=== PATIENT | male | born 1945 | race Caucasian/White ===

== ENCOUNTER 2024-03-06 07:50 | Emergency (ER) | payer MEDICARE, OTHER ==
--- NOTE | 2024-03-06 07:53 | ERPHSYRPT ---
- History of Present Illness Time Seen by Provider: 03/06/24 07:53 Historian: patient, family Exam Limitations: no limitations Physician History: This is a 78-year-old white male patient who was brought to the emergency department by his spouse secondary to constipation and urinary retention. Patient had fallen several days ago and was placed on narcotic pain medicine. Approximate 4 to 5 days ago he noticed constipation and difficulty urinating therefore he stopped the narcotics. However, he has not been able to urinate in the last couple of days and also has not been able to have a bowel movement in the last 4 to 5 days. He has had no nausea or vomiting symptoms. However, he does have abdominal distention with discomfort. Patient has had issues in the past with constipation. Recently he tried stool softeners as well as Ex-Lax type of medication. He did attempt to use a fleets enema but was unable to do so. Patient denies shortness of breath. Patient denies chest pain. Patient is a daily smoker of tobacco cigarettes. He has a history of hyperlipidemia, coronary disease, hypertension, hypothyroidism and gout. Timing/Duration: day(s), worse (4 to 5 days) Quality: pressure, tightness Abdominal Pain Onset Location: generalized abdomen Pain Radiation: no radiation Severity of Pain-Max: mild Severity of Pain-Current: mild Modifying Factors: Improves With: nothing Associated Symptoms: other (The patient and urinary retention) Previous symptoms: same symptoms as today (In the distant past), no recent treatment Allergies/Adverse Reactions: No Known Drug Allergies Allergy (Verified 01/04/13 13:26) Home Medications: Allopurinol 300 mg [Zyloprim 300 mg] 300 mg PO DAILY 01/04/13 [History] Aspirin EC 325 mg [Ecotrin 325 MG] 325 mg PO DAILY 01/04/13 [History] Hydrochlorothiazide 25 mg [hydroDIURIL 25 MG] 12.5 mg PO DAILY 01/04/13 [History] Indomethacin 25 mg [Indocin 25 MG] 75 mg PO BID 01/04/13 [History] Levothyroxine Sodium 50 Mcg [Synthroid 50 Mcg] 50 mcg PO DAILY 01/04/13 [History] Lisinopril 5 mg [Zestril 5 MG] 5 mg PO DAILY 01/04/13 [History] Metformin HCl 1000 mg [Glucophage 1000 MG] 1,000 mg PO DAILY 01/04/13 [History] Metoprolol Tartrate 50 mg [Lopressor 50 MG] 50 mg PO DAILY 01/04/13 [History] Nitroglycerin 0.4 mg/Hr [Nitro-Dur 0.4 MG/HR] 0.4 mg TD DAILY 01/04/13 [History] Rosuvastatin Calcium [Crestor] 20 mg PO DAILY 01/04/13 [History] Hx Influenza Vaccination/Date Given: No Hx Pneumococcal Vaccination/Date Given: No Travel Risk - International Travel Have you traveled outside of the country in past 3 weeks: No - Emerging Infectious Disease Are you exhibiting symptoms associated with any current EIDs: No - Review of Systems Constitutional: No Symptoms Eyes: No Symptoms Ears, Nose, & Throat: No Symptoms Respiratory: No Symptoms Cardiac: No Symptoms Abdominal/Gastrointestinal: Abdominal Pain (Diffuse), Constipation Genitourinary Symptoms: Urinary Retention Musculoskeletal: No Symptoms Skin: No Symptoms Neurological: No Symptoms Psychological: No Symptoms Endocrine: No Symptoms Hematologic/Lymphatic: No Symptoms Immunological/Allergic: No Symptoms All Other Systems: Reviewed and Negative - Past Medical History Pertinent Past Medical History: No Neurological History: No Pertinent History ENT History: Cataracts Cardiac History: Coronary Artery Disease, Other Respiratory History: Emphysema Endocrine Medical History: Hypoglycemia Musculoskeletal History: Other GI Medical History: No Pertinent History History: No Pertinent History Psycho-Social History: No Pertinent History Male Reproductive Disorders: No Pertinent History - Past Surgical History Past Surgical History: Yes Neuro Surgical History: No Pertinent History Cardiac: CABG, Cardiac Catheterization, Cardiac Stent, Other Respiratory: Chest Surgery Gastrointestinal: Appendectomy Genitourinary: No Pertinent History Musculoskeletal: Orthopedic Surgery Male Surgical History: No Pertinent History Other Surgical History: left elbow spur removed and gout scraping,left knee torn menisc. and gout scraping,quad bipass cardiac 2004 - Social History Smoking Status: Current every day smoker How long have you smoked: yrs Exposure to second hand smoke: Yes Drug Use: none - Nursing Vital Signs Nursing Vital Signs: Initial Vital Signs Temperature 97.7 F 03/06/24 08:04 Pulse Rate 102 H 03/06/24 08:04 Respiratory Rate 24 03/06/24 08:04 Blood Pressure 166/88 03/06/24 08:04 O2 Sat by Pulse Oximetry 100 03/06/24 08:04 Pain Scale Pain Intensity 4 - Physical Exam General Appearance: no apparent distress, alert, anxiety, obese Eye Exam: PERRL/EOMI, eyes nml inspection Ears, Nose, Throat Exam: normal ENT inspection, moist mucous membranes Neck Exam: normal inspection, non-tender, supple, full range of motion Respiratory Exam: normal breath sounds, lungs clear, airway intact, No chest tenderness, No respiratory distress Cardiovascular Exam: regular rate/rhythm, normal heart sounds, normal peripheral pulses Gastrointestinal/Abdomen Exam: normal bowel sounds, tenderness (Mild diffuse), distention, No guarding, No rebound Rectal Exam: not done Back Exam: normal inspection, normal range of motion, No CVA tenderness, No vertebral tenderness Neurologic Exam: alert, oriented x 3, cooperative, tape transferrer II-XII nml as tested, normal mood/affect, nml cerebellar function, nml station & gait, sensation nml Skin Exam: normal color, warm, dry Lymphatic Exam: No adenopathy SpO2 Interpretation: normal O2 Delivery: Room Air - Course Nursing assessment & vital signs reviewed: Yes Ordered Tests: Active Orders 24 hr Category Date Time Status Catheter-[place] Goldberg STAT Care 03/06/24 08:30 Active Enema STAT Care 03/06/24 08:31 Active IV Insertion STAT Care 03/06/24 13:47 Active ABDOMEN AND PELVIS W/0 CONTRAS [CT] Stat Exams 03/06/24 11:36 Completed BLADDER [US] Stat Exams 03/06/24 14:26 Ordered KUB Stat Exams 03/06/24 07:53 Taken CULTURE,URINE Stat Lab 03/06/24 09:32 Received UA W/RFX UR CULTURE Stat Lab 03/06/24 09:32 Completed Medication Summary Discontinued Medications Generic Name Dose Route Start Last Admin Trade Name Freq PRN Reason Stop Dose Admin Ceftriaxone Sodium 1,000 mg 03/06/24 11:15 03/06/24 13:48 Ceftriaxone Sodium 1000 Mg Inj Vial IM 03/06/24 11:16 Not Given STAT ONE Ceftriaxone Sodium 1 gm in 100 mls @ 200 mls/hr 03/06/24 13:48 03/06/24 14:21 Rocephin 1 Gm / 100 Ml Nacl IV 03/06/24 14:17 Infused STAT ONE Infusion Ceftriaxone Sodium Confirm 03/06/24 13:49 Rocephin 1 Gm / 100 Ml Nacl Administered 03/06/24 13:50 Dose 1 gm in 100 mls @ ud IV .K-MED ONE Lab/Rad Data: Laboratory Results 03/06/24 Range/Units 09:32 Urine Color Yellow (Yellow) Urine Appearance Cloudy A (Clear) Urine pH 5.0 (4.6-8.0) Ur Specific [employer] 1.015 (1.005-1.030) Urine Protein Trace A (Negative) Urine Glucose (UA) Negative (Negative) mg/dL Urine Ketones Negative (Negative) Urine Blood Large A (Negative) Urine Nitrite Negative (Negative) Urine Bilirubin Negative (Negative) Urine Urobilinogen 0.2 (0.2) mg/dL Ur Leukocyte Esterase Trace A (Negative) Urine Microscopic RBC >100 A (0-5) /HPF Urine Microscopic WBC 6-10 A (0-5) /HPF Ur Epithelial Cells Few (None Seen) /HPF Urine Bacteria Rare A (None Seen) /HPF Urine Culture Reflexed YES (NO) - Progress Progress: improved, re-examined Progress Note: 03/06/24 08:28 My medical decision making and the assignment of low to moderate complexity is based on review of the patient's past medical history, review the patient's medication list, review of patient drug allergy list, history presence and physical findings on examination. The initial workup will include KUB, placement of a Goldberg catheter and urinalysis. We will also provide the patient with a soapsuds enema. These interventions should relieve his symptoms. If they do then no further workup necessary. However if not and there is a large amount of stool in the rectosigmoid region, we may need to perform a digital disimpaction. 03/06/24 08:30 Differential diagnosis includes constipation, rectal impaction, urinary retention, urinary tract infection 03/06/24 14:59 I interpreted the patient's urinalysis. The patient has a urinary tract infection. Next CT scan of the abdomen pelvis without contrast was interpreted by the radiologist and I reviewed the impression. Present states large prostate. Markedly distended urinary bladder which could be due to acute retention. Ureters, renal pelvis ease and calyces are dilated likely due to reflux. 03/06/24 15:02 Counseled pt/family regarding: diagnosis, need for follow-up, rad results Medical Desision Making - Independent Historian Additional History obtained from: Spouse - Diagnostic Testing Diagnostic test were ordered, analyzed, and reviewed by me: Yes Radiological Interpretation: Reviewed by me, Teleradiologist Report - Risk of complications The pt has a mod risk of morbidity or mortality based on: Need for prescription drug management - Departure Departure Disposition: Home Clinical Impression: Urinary retention, UTI (urinary tract infection) Condition: Stable Critical Care Time: No Referrals: IVETTE KOENIG MD [Primary Care Provider] - Follow up/PCP as directed Additional Instructions: Drink plenty of fluids. Take your antibiotics and other medication as prescribed. Continue the Goldberg catheter with the care instructions provided to you. Call a urologist on Friday morning, 03/08/2024 to make arrangements for follow-up appointment to be seen in the next 3 days. Prescriptions: Ciprofloxacin [Cipro 500 MG] 500 mg PO BID #14 tablet
[2024-03-06 08:24] VITALS: TEMP 97.7
[2024-03-06 10:41] LABS: Appearance Cloudy (Clear); Bilirubin Negative (Negative); Blood Large (Negative); Epithelial Cells Few /HPF (None Seen); Glucose, Urine Negative (Negative); Ketones Negative (Negative); Leukocyte Esterase Trace (Negative); Nitrite Negative (Negative); Protein,Urine Dip Trace (Negative); RBC >100 /HPF (0-5); Specific Gravity 1.015 (1.005-1.030); Urobilinogen 0.2 mg/dL (0.2)
[2024-03-06 10:43] LABS: ADD URINE CULTURE? YES (NO); Bacteria Rare /HPF (None Seen)
[2024-03-06] MEDS: Rocephin 1000 MG INJ IM ONE (13:48)
[2024-03-06] MEDS ORDERED: ROCEPHIN 1 GM / 100 ML NaCl 1 GM/100 ML IVPB IV ONE (13:49)
[2024-03-06] MEDS: ROCEPHIN 1 GM / 100 ML NaCl 1 GM/100 ML IVPB IV ONE (13:51)
--- NOTE | 2024-03-06 14:26 | XRAY ---
CLINICAL HISTORY: Abdominal distention; constipation COMPARISON: None. TECHNIQUE: Contiguous, multislice CT scan of the abdomen and pelvis was performed without contrast, in the axial plane with multiplanar reconstructions. One of the following dose reduction techniques was utilized for this exam: Automated exposure control, adjustment of the mA and/or kV according to patient size, and use of iterative reconstruction. FINDINGS: Visualized sections of the lower chest show no focal mass or consolidation. Bilateral mild fibrotic changes were noted in the basal segments of the lungs. Average-sized liver measuring about 16 cm in craniocaudal axis showing homogeneous attenuation with no focal mass lesion. Multiple tiny calcifications are present, non-specific. No intrahepatic biliary dilatation.Normal-sized portal vein and CBD.? Gallbladder shows no definite calculi inside.? The pancreas and spleen appear unremarkable.?Multiple small calcifications are present in the splenic parenchyma, non-specific. A lesion with predominantly fatty density and well-defined smooth margins, measuring 15 x 10 mm, is noted in the right adrenal gland, most likely an adenoma. The left adrenal gland appears unremarkable. The kidneys exhibit bilateral simple cortical cysts. The largest is located in the left upper cortex, measuring 19 mm in diameter (Bosniak I). The perirenal fat shows signs of increased density and thickening. No calculi are noted in the calyces, renal pelvises, or ureters. The ureters, renal pelvises, and calyces are dilated, highly likely due to reflux. Significant enlargement of the bladder is noted, indicating acute urinary retention. The prostate is significantly enlarged, measuring 7.2 x 6.2 x 6.1 cm, with an estimated volume of approximately 141 mL. The stomach appears unremarkable. ? Unremarkable appearing duodenum. ? No Acute Appendicitisis. Small Bowel and colon are non-distended with no abnormality. ? No free intraperitoneal air and no ascites. IMPRESSION: 1. Large prostate. 2. Markedly distended urinary bladder could be acute retention. 3. The ureters, renal pelvises, and calyces are dilated, highly likely due to reflux. 4. A lesion with predominantly fatty density is noted in the right adrenal gland, most likely an adenoma. [facility] ER was called at [phone] at 02:16 PM EST, 03/06/2024 and results were verbally communicated to Nurse Chantal. Electronically Signed by: Hunter Fuentes MD. (03/06/2024 14:22:00 EDT)
[2024-03-06 17:25] VITALS: BP 128/64
[2024-03-06 18:19] VITALS: PULSE 78; RESP 18; O2SAT 97
--- NOTE | 2024-03-06 21:10 | XRAY ---
Indication: Constipation. Comparison: June 07, [address] proven markedly distended urinary bladder. No focal bowel dilatation, obstruction, or free air. Diffuse scattered vascular calcifications. Osseous structures intact with osteopenia and moderate degenerative changes.
--- NOTE | 2024-03-06 21:22 | XRAY ---
Indication: Urinary retention. Abdominal swelling. Ultrasound urinary bladder demonstrates a markedly distended bladder with low-level echogenic debris in the dependent portion. Ureteral jets not seen within the allotted exam time. Incidental Goldberg balloon catheter in situ. Prevoid volume is 2843 cc. Goldberg catheter was allowed to drain. After 40 minutes, postvoid volume is 1690 cc. Enlarged prostate gland measuring 5 x 3.6 cm. Impression: Abnormally distended urinary bladder with echogenic debris. Prevoid and postvoid volume as above. Enlarged prostate gland. Comment: Preliminary report was given.
== END 2024-03-06 18:19 | disposition home or self-care (01) ==
LOC: ED 07:50
DX: R33.9 Retention of urine, unspecified (principal); N39.0 Urinary tract infection, site not specified; K59.00 Constipation, unspecified; E78.5 Hyperlipidemia, unspecified; I10 Essential (primary) hypertension; Z79.84 Long term (current) use of oral hypoglycemic drugs; Z79.899 Other long term (current) drug therapy; Z72.0 Tobacco use
CPT/HCPCS: 36000; 51702; 74018; 74176; 76705; 81001; 87086; 96365; 99284; P9612; J0696

== ENCOUNTER 2024-03-10 20:40 | Emergency (ER) | payer MEDICARE, OTHER | END 2024-03-10 20:51 | disposition left against medical advice (07) | LOC: ED 20:40 | DX: Z53.21 Procedure and treatment not carried out due to patient leaving prior to being seen by health care provider (principal) ==